=== PATIENT | female | born 1950 | race Caucasian/White ===

== ENCOUNTER 2023-10-23 14:37 | Emergency (ER) | payer MEDICARE, OTHER ==
[~2023-10-23] VITALS: Ht 170.1 cm; Wt 103.4 kg
[~2023-10-23 14:37] MED LIST: AMLODIPINE5 MG PO; CLARITIN10 MG PO; LOSARTAN POTASS50 M1 PO; MEDROL DOSEPAK4 MG PO; MOTRIN800 MG PO; ZOFRAN4 MG PO
[2023-10-23] MEDS ORDERED: Acetaminophen/Oxycodone 5 MG/325 MG TABLET PO ONE (14:55)
[2023-10-23 15:03] LABS: BASO % 0.6 % (0.0-1.0); EOS # 0.2 10*3/uL (0.0-0.4); EOS % 3.4 % (1.0-4.0); HEMATOCRIT 40.1 % (37.0-47.0); LYMPH # 2.1 10*3/uL (1.3-4.4); LYMPH % 30.2 % (27.0-41.0); MEAN CELL VOLUME 86.4 fl (81.0-99.0); MEAN CORPUSCULAR HGB 27.2 pg (27.0-31.0); MEAN CORPUSCULAR HGB CONC 31.4 g/dl (33.0-37.0); MEAN PLATELET VOLUME 12.3 fl (9.6-12.3); MONO # 0.8 10*3/uL (0.1-1.0); NEUT # 3.8 10*3/uL (2.3-7.9); NEUT % 54.5 % (47.0-73.0); PLATELET COUNT AUTOMATED 184 10*3/uL (130-400); RED BLOOD COUNT 4.64 10*6/uL (4.10-5.10); RED CELL DISTRI WIDTH 13.8 % (0-14.5)
[2023-10-23 15:17] LABS: ACT PARTIAL THROMBO TIME 30.2 SECONDS (20.0-32.1)
[2023-10-23 15:20] LABS: ALKALINE PHOSPHATASE 127 U/L (46-116); BUN 13 mg/dl (9-23); CHLORIDE 107 mmol/L (98-107); POTASSIUM 4.3 mmol/L (3.4-5.1); SGPT/ALT 14 U/L (5-49); TOTAL PROTEIN 6.3 gm/dL (6.0-8.0)
== END 2023-10-23 17:43 | disposition home or self-care (01) ==
LOC: ED 14:37
PROVIDERS: Internal Medicine
DX: R07.89 Other chest pain (principal); I48.91 Unspecified atrial fibrillation; Z53.29 Procedure and treatment not carried out because of patient's decision for other reasons; Z91.041 Radiographic dye allergy status; Z91.040 Latex allergy status; Z79.899 Other long term (current) drug therapy; Z95.5 Presence of coronary angioplasty implant and graft